=== PATIENT | female | born 1960 | race Caucasian/White ===

== ENCOUNTER 2016-10-06 08:00 | Outpatient (CLI) | payer OTHER | END 2016-10-06 08:01 | disposition home or self-care (01) | DX: R51 Headache (principal) ==

== ENCOUNTER 2016-12-12 13:33 | Outpatient (CLI) | payer OTHER | END 2016-12-12 13:34 | disposition home or self-care (01) | DX: Z00.00 Encounter for general adult medical examination without abnormal findings (principal) ==

== ENCOUNTER 2017-01-20 10:50 | Outpatient (CLI) | payer OTHER ==
--- NOTE | 2017-01-25 14:49 | Mammography Report ---
DIGITAL BILATERAL SCREENING MAMMOGRAM: 01/20/2017 CLINICAL HISTORY: This is a 56-year-old female in for routine screening mammogram. Patient has a fa elina history of breast cancer. Her sister had breast cancer at age 49. Patient had breast biopsy and also has had breast reduction surgery. COMPARISON: 07/18/2008, 07/20/2009, 08/03/2009, 08/02/2010, 10/28/2011, 12/26/2012, 10/24/2013, 10/2014, 12/30/2015. FINDINGS: Breasts are almost entirely composed of fat. Two small benign intramammary lymph nodes are once again noted in the tail of the left breast. No si gnificant clusters of calcification are seen. There is a cluster of 2-3 small masses now noted in th e 5-6 o'clock position of the left breast, 3-4 cm inferior to the left nipple. These findings were n ot evident on 12/30/1999. They measure between 0.2 cm and 0.4 cm in diameter. Recommend patient ret urn for left breast ultrasound for further evaluation. IMPRESSION: A CLUSTER OF 2-3 SMALL MASSES MEASURING BETWEEN 0.2 CM AND 0.4 CM IS NOTED IN THE 5-6 O' CLOCK POSITION OF THE LEFT BREAST. RECOMMEND PATIENT RETURN FOR LEFT BREAST ULTRASOUND FOR FURTHER E VALUATION. STANDARD QUALIFYING STATEMENTS 1. This examination was reviewed with the aid of Computed-Aided Detection (CAD). 2. A negative or benign imaging report should not delay biopsy if clinically suspicious findings are present. Consider surgical consultation if warranted. More than 5% of cancers are not identified b y imaging. 3. Dense breasts may obscure an underlying neoplasm. ADDENDUM: BIRADS CATEGORY: 0, INCOMPLETE. NEEDS ADDITIONAL IMAGING EVALUATION. JOB #: [id number] EXT JOB #:[id number]
== END 2017-01-20 10:51 | disposition home or self-care (01) ==
LOC: DI.N 10:50
PROVIDERS: ATTEND Physician Assistant Medical
DX: Z12.31 Encounter for screening mammogram for malignant neoplasm of breast (principal)
CPT/HCPCS: 77067

== ENCOUNTER 2017-02-09 11:51 | Outpatient (CLI) | payer OTHER ==
--- NOTE | 2017-02-09 13:05 | Ultrasound Report ---
LEFT BREAST ULTRASOUND: 02/09/2017 CLINICAL INDICATION: Nodularity left inferior breast on screening mammogram. TECHNIQUE: Real-time scanning was performed with off premise service representative static images obtained. FINDINGS: Ultrasound of the left inferior breast was performed. At the 5:30 position, 4 cm from the nipple, there is a cluster of small cysts, accounting for the lelia mographic abnormality, with the largest cyst measuring 4 mm. No solid lesion is seen. No sonographica lly suspicious findings are appreciated. IMPRESSION: BENIGN FINDINGS, WITH A CLUSTER OF CYSTS ACCOUNTING FOR THE MAMMOGRAPHIC ABNORMALITY. RECOMMENDATION: ROUTINE ANNUAL SCREENING UNLESS OTHERWISE CLINICALLY INDICATED. BIRADS CATEGORY 2-BENIGN FINDINGS. JOB #: [id number] EXT JOB #:[id number]
== END 2017-02-09 11:52 | disposition home or self-care (01) ==
LOC: DI 11:51
PROVIDERS: ATTEND Physician Assistant Medical
DX: N60.12 Diffuse cystic mastopathy of left breast (principal)
CPT/HCPCS: 76642

== ENCOUNTER 2017-03-29 11:08 | Outpatient (CLI) | payer OTHER ==
--- NOTE | 2017-03-29 12:22 | Ultrasound Report ---
COMPLETE ABDOMINAL ULTRASOUND: 03/29/2017 CLINICAL INDICATION: Reflux. TECHNIQUE: Real-time scanning was performed with medical office representative static images obtained. FINDINGS: The liver measures 10.5 cm. Hepatic echotexture is normal. No intrahepatic biliary dilat ation or focal parenchymal lesion is seen. The common bile duct measures 5 mm. The gallbladder is n ormal, as is the pancreas. The kidneys are normal, with the right measuring 11.3 cm and the left cat suring 10.8 cm. The spleen is normal, measuring 7.9 cm. The abdominal aorta is normal in caliber. The inferior vena cava is unremarkable. No free fluid is present. IMPRESSION: NORMAL ABDOMINAL ULTRASOUND. JOB #: [id number] EXT JOB #:[id number]
== END 2017-03-29 11:09 | disposition home or self-care (01) ==
LOC: DI 11:08
PROVIDERS: ATTEND Physician Assistant Medical
DX: K21.9 Gastro-esophageal reflux disease without esophagitis (principal)
CPT/HCPCS: 76700

== ENCOUNTER 2018-01-01 08:00 | Outpatient (CLI) | payer OTHER ==
[2018-01-01 13:22] LABS: BASOPHILS % (AUTO) 1.2 %; EOSINOPHILS # (AUTO) 0.1 10^3/uL (0.0-0.7); EOSINOPHILS % (AUTO) 2.4 %; HGB - HEMOGLOBIN 14.3 g/dL (12.0-16.0); LYMPHOCYTES # (AUTO) 1.6 10^3/uL (1.5-3.5); LYMPHOCYTES % (AUTO) 41.8 %; MEAN CORPUSCULAR HEMOGLOBIN 31.2 pg (27.0-31.0); MEAN CORPUSCULAR HGB CONC 33.7 g/dL (32.0-36.0); MEAN CORPUSCULAR VOLUME 92.6 fL (81.0-99.0); MEAN PLATELET VOLUME 8.1 fL (7.9-10.8); MONOCYTES # (AUTO) 0.3 10^3/uL (0.0-1.0); MONOCYTES % (AUTO) 7.2 %; NEUTROPHILS # (AUTO) 1.8 10^3/uL (1.5-6.6); NEUTROPHILS % (AUTO) 47.4 %; PLT - PLATELET COUNT 227 10^3/uL (130-450); RED BLOOD COUNT 4.58 10^6/uL (4.20-5.40); RED CELL DISTRIBUTION WIDTH 12.5 % (12.0-15.0); WHITE BLOOD COUNT 3.8 x10^3/uL (4.8-10.8)
[2018-01-01 13:40] LABS: ALBUMIN 4.4 g/dL (3.2-5.5); ALBUMIN/GLOBULIN RATIO 1.8 (1.0-2.2); ALKALINE PHOSPHATASE 43 IU/L (42-121); ALT ALANINE AMINOTRANSFERASE 17 IU/L (10-60); AST ASPARTATE AMINOTRANSFERASE 23 IU/L (10-42); BILIRUBIN,TOTAL 0.3 mg/dL (0.2-1.0); BUN - BLOOD UREA NITROGEN 17 mg/dL (6-20); CALCIUM 8.9 mg/dL (8.5-10.3); CARBON DIOXIDE - CO2 28 mmol/L (21-32); CHLORIDE 106 mmol/L (101-111); CHOL/HDL RATIO 2.9 (<4.4); CHOLESTEROL 167 mg/dL; CREATININE 0.7 mg/dL (0.4-1.0); GFR - MDRD 87 (>89); GLUCOSE 92 mg/dL (70-100); HDL CHOLESTEROL 58 mg/dL; LDL CHOLESTEROL,CALCULATED 94 mg/dL; LDL/HDL RATIO 1.6 (<4.4); SODIUM 141 mmol/L (135-145); TOTAL PROTEIN 6.8 g/dL (6.7-8.2); VLDL CHOLESTEROL 15 mg/dL
[2018-01-01 14:01] LABS: HB2 TOTAL 15.8 g/dL; HEMOGLOBIN A1C 0.57 g/dL; HEMOGLOBIN A1C % 5.5 % (4.6-6.2)
== END 2018-01-01 08:01 | disposition home or self-care (01) ==
LOC: LAB.WCP 08:00
PROVIDERS: ATTEND Family Medicine
DX: E03.9 Hypothyroidism, unspecified (principal); Z00.00 Encounter for general adult medical examination without abnormal findings; R73.01 Impaired fasting glucose; E78.5 Hyperlipidemia, unspecified; M79.7 Fibromyalgia
CPT/HCPCS: 36415; 80053; 80061; 83036; 83721; 84443; 85025

== ENCOUNTER 2018-02-16 08:38 | Outpatient (CLI) | payer OTHER ==
--- NOTE | 2018-02-19 18:24 | Mammography Report ---
Procedure Date: 02/16/2018 Accession Number: [id number] / [id number] Procedure: MGN - Screening Mammo Dig Bilat CPT Code: FULL RESULT: EXAM: Screening Mammo Dig Bilat DATE: 02/16/2018 8:56 AM CLINICAL HISTORY: Sister with breast cancer. History of bilateral reduction surgery. TECHNIQUE: Bilateral CC and MLO views were obtained. COMPARISON: 01/20/2017, 12/30/2015, 11/03/14, 10/24/2013, 12/26/2012 and 10/28/2011 FINDINGS: There are scattered fibroglandular densities. No significant interval change. No suspicious masses, clustered microcalcifications, or regions of architectural distortion are identified. IMPRESSION: Negative. RECOMMENDATION: Routine annual screening unless otherwise clinically indicated. BIRADS CATEGORY 1: Negative STANDARD QUALIFYING STATEMENTS: 1. This examination was reviewed with the aid of Computer-Aided Detection (CAD). 2. A negative or benign imaging report should not delay biopsy if clinically suspicious findings are present. Consider surgical consultation if warrented. More than 5% of cancers are not identified by imaging. 3. Dense breasts may obscure an underlying neoplasm.
== END 2018-02-16 08:39 | disposition home or self-care (01) ==
LOC: DI.N 08:38
PROVIDERS: ATTEND Physician Assistant Medical
DX: Z12.31 Encounter for screening mammogram for malignant neoplasm of breast (principal); Z80.3 Family history of malignant neoplasm of breast
CPT/HCPCS: 77067

== ENCOUNTER 2018-04-21 08:25 | Outpatient (CLI) | payer OTHER ==
--- NOTE | 2018-04-22 11:54 | MRI Report ---
Procedure Date: 04/21/2018 Accession Number: [id number] / [id number] Procedure: MRI - Knee LT W/O CPT Code: FULL RESULT: EXAM: LEFT KNEE MRI WITHOUT CONTRAST EXAM DATE: 04/21/2018 09:21 AM. CLINICAL HISTORY: KNEE PAIN, LEFT. COMPARISON: 12/19/2016 left knee radiographs. TECHNIQUE: Multiplanar, multisequence T1-weighted and fluid-sensitive sequences of the knee without contrast. Other: None. FINDINGS: Bones: There is focal edema within the medial margin of the patella. Marrow signal is otherwise normal with the knee.. Articular Cartilage: Unremarkable. Medial Meniscus: The medial meniscus is intact. Lateral Meniscus: The lateral meniscus is intact. Cruciate Ligaments: The anterior and posterior cruciate ligaments are intact. Collateral Ligaments: The medial collateral and lateral collateral ligamentous structures are intact. Tendons: The quadriceps, patellar, semimembranosus, and popliteus tendons are unremarkable. Musculature: No edema or fatty atrophy. Other: No effusion. No popliteal cyst. No loose bodies. The medial and lateral retinacula are intact. There is edema within the superolateral aspect of Hoffa's fat pad.. IMPRESSION: 1. Edema within the superolateral aspect of Hoffa's fat pad is suggestive of fat pad impingement in the setting of patellar tendon-lateral femoral condyle friction syndrome. 2. Normal cruciate and collateral ligaments. Normal menisci. 3. Intact articular cartilage at the knee. 4. Nonspecific marrow edema at the medial margin of the patella without evidence of underlying fracture. RADIA MUSCULOSKELETAL RADIOLOGY SECTION
== END 2018-04-21 08:26 | disposition home or self-care (01) ==
LOC: DI 08:25
PROVIDERS: ATTEND Physician Assistant Medical
DX: M25.562 Pain in left knee (principal); M25.862 Other specified joint disorders, left knee

== ENCOUNTER 2018-12-21 08:00 | Outpatient (CLI) | payer OTHER ==
[2018-12-21 13:42] LABS: BASOPHILS % (AUTO) 1.1 %; EOSINOPHILS # (AUTO) 0.1 10^3/uL (0.0-0.7); EOSINOPHILS % (AUTO) 1.6 %; HGB - HEMOGLOBIN 14.1 g/dL (12.0-16.0); LYMPHOCYTES # (AUTO) 1.4 10^3/uL (1.5-3.5); LYMPHOCYTES % (AUTO) 33.5 %; MEAN CORPUSCULAR HEMOGLOBIN 30.7 pg (27.0-31.0); MEAN CORPUSCULAR HGB CONC 33.1 g/dL (32.0-36.0); MEAN CORPUSCULAR VOLUME 92.7 fL (81.0-99.0); MEAN PLATELET VOLUME 8.3 fL (7.9-10.8); MONOCYTES # (AUTO) 0.3 10^3/uL (0.0-1.0); MONOCYTES % (AUTO) 6.6 %; NEUTROPHILS # (AUTO) 2.3 10^3/uL (1.5-6.6); NEUTROPHILS % (AUTO) 57.2 %; PLT - PLATELET COUNT 234 10^3/uL (130-450); RED CELL DISTRIBUTION WIDTH 12.8 % (12.0-15.0); WHITE BLOOD COUNT 4.1 x10^3/uL (4.8-10.8)
[2018-12-21 14:02] LABS: ALBUMIN 4.5 g/dL (3.2-5.5); ALBUMIN/GLOBULIN RATIO 1.9 (1.0-2.2); ALKALINE PHOSPHATASE 46 IU/L (42-121); ALT ALANINE AMINOTRANSFERASE < 10 IU/L (10-60); AST ASPARTATE AMINOTRANSFERASE 15 IU/L (10-42); BILIRUBIN,TOTAL 0.9 mg/dL (0.2-1.0); BUN - BLOOD UREA NITROGEN 17 mg/dL (6-20); CALCIUM 9.2 mg/dL (8.5-10.3); CARBON DIOXIDE - CO2 29 mmol/L (21-32); CHLORIDE 103 mmol/L (101-111); CHOL/HDL RATIO 2.7 (<4.4); CHOLESTEROL 172 mg/dL; CREATININE 0.6 mg/dL (0.4-1.0); GFR - MDRD 103 (>89); GLUCOSE 90 mg/dL (70-100); HDL CHOLESTEROL 64 mg/dL; LDL CHOLESTEROL,CALCULATED 91 mg/dL; LDL/HDL RATIO 1.4 (<4.4); SODIUM 139 mmol/L (135-145); TOTAL PROTEIN 6.9 g/dL (6.7-8.2); VLDL CHOLESTEROL 17 mg/dL
== END 2018-12-21 23:59 | disposition home or self-care (01) ==
LOC: EEVIPCON → LAB.WCP 08:00
PROVIDERS: ATTEND Physician Assistant Medical
DX: R73.01 Impaired fasting glucose (principal); Z79.899 Other long term (current) drug therapy; E78.5 Hyperlipidemia, unspecified; E03.9 Hypothyroidism, unspecified
CPT/HCPCS: 36415; 80053; 80061; 83721; 84443; 85025

== ENCOUNTER 2019-03-04 08:04 | Outpatient (CLI) | payer OTHER ==
--- NOTE | 2019-03-04 11:06 | Mammography Report ---
Reason: SCREENING MAMMO Procedure Date: 03/04/2019 Accession Number: [id number] / [id number] Procedure: MARYANNE - Screening Mammo w/Kaveh CPT Code: FULL RESULT: EXAM: Screening Mammo w/Kaveh DATE: 03/04/2019 8:59 AM CLINICAL HISTORY: Routine screening. Sisters with breast cancer TECHNIQUE: (B) - Bilateral CC and MLO views were obtained. COMPARISON: 02/16/2018, 01/20/2017, 12/30/2015 and 11/03/2014 PARENCHYMAL PATTERN: (A) - The breasts demonstrate scattered fibroglandular densities bilaterally. FINDINGS: No significant interval change. There are no suspicious masses, calcifications, or areas of distortion. IMPRESSION: Negative examination. BI-RADS category 1. RECOMMENDATION: (ANNUAL) - Recommend routine annual screening mammography. BI-RADS CATEGORY: (1) - Negative. STANDARD QUALIFYING STATEMENTS: 1. This examination was not reviewed with the aid of Computer-Aided Detection (CAD). 2. A negative or benign imaging report should not preclude biopsy if clinically suspicious findings are present. 3. Dense breasts may obscure an underlying neoplasm. 4. This examination was reviewed with the aid of 3D breast imaging (tomosynthesis).
== END 2019-03-04 08:05 | disposition home or self-care (01) ==
LOC: DI 08:04
DX: Z12.31 Encounter for screening mammogram for malignant neoplasm of breast (principal); Z80.3 Family history of malignant neoplasm of breast
CPT/HCPCS: 77063; 77067

== ENCOUNTER 2019-12-18 08:21 | Outpatient (CLI) | payer OTHER ==
[2019-12-18 12:30] LABS: ALBUMIN 4.6 g/dL (3.2-5.5); ALBUMIN/GLOBULIN RATIO 1.8 (1.0-2.2); ALKALINE PHOSPHATASE 41 IU/L (42-121); ALT ALANINE AMINOTRANSFERASE 14 IU/L (10-60); AST ASPARTATE AMINOTRANSFERASE 19 IU/L (10-42); BILIRUBIN,TOTAL 0.9 mg/dL (0.2-1.0); BUN - BLOOD UREA NITROGEN 14 mg/dL (6-20); CALCIUM 9.4 mg/dL (8.5-10.3); CARBON DIOXIDE - CO2 27 mmol/L (21-32); CHLORIDE 105 mmol/L (101-111); CHOL/HDL RATIO 2.6 (<4.4); CHOLESTEROL 179 mg/dL; CREATININE 0.8 mg/dL (0.4-1.0); GLUCOSE 90 mg/dL (70-100); HDL CHOLESTEROL 70 mg/dL; LDL CHOLESTEROL,CALCULATED 80 mg/dL; LDL/HDL RATIO 1.1 (<4.4); SODIUM 141 mmol/L (135-145); TOTAL PROTEIN 7.2 g/dL (6.7-8.2); VLDL CHOLESTEROL 29 mg/dL
== END 2019-12-18 23:59 | disposition home or self-care (01) ==
LOC: LAB.WCP 08:21
PROVIDERS: ATTEND Physician Assistant Medical
DX: R73.01 Impaired fasting glucose (principal); E78.5 Hyperlipidemia, unspecified; E03.9 Hypothyroidism, unspecified
CPT/HCPCS: 36415; 80053; 80061; 83721; 84443

== ENCOUNTER 2020-03-19 09:40 | Outpatient (CLI) | payer OTHER | END 2020-03-19 23:59 | disposition home or self-care (01) | LOC: COV 09:40 | PROVIDERS: ATTEND Family Medicine | DX: R50.9 Fever, unspecified (principal); R05 Cough; R53.83 Other fatigue; J02.9 Acute pharyngitis, unspecified; Z20.828 Contact with and (suspected) exposure to other viral communicable diseases ==

== ENCOUNTER 2020-05-14 16:10 | Outpatient (CLI) | payer OTHER ==
--- NOTE | 2020-05-15 12:19 | MRI Report ---
PROCEDURE: Hand LT W/O INDICATIONS: SPRAIN OF LT FINGER TECHNIQUE: Noncontrast coronal T1 spin echo and T2 fast spin echo with fat saturation, axial proton density fast spin echo and T2 fast spin echo with fat saturation, sagittal T1 spin echo and STIR through the hand and fingers. COMPARISON: None FINDINGS: Image quality: Excellent. Bones: Surface skin marker is placed over dorsal aspect of fifth proximal phalangeal base. The bones are normally aligned. Marrow edema involving fifth proximal phalangeal base is seen, with subtle int ernal linear hypointense signal concerning for contusion versus a subtle nondisplaced/incomplete frac ture in this area. No other area of abnormal marrow signal is noted. Interphalangeal joint(s): The accessory and proper collateral ligaments appear intact. The volar pl ate demonstrates normal morphology. The extensor central slips appear intact on sagittal images. Metacarpophalangeal joint(s): The accessory and proper collateral ligaments appear intact, as well a s the volar plate and adjacent deep transverse metacarpal ligaments. The sagittal bands of the exten sor galan appear normal. Extensor apparatus: The central slips insert normally on the middle phalangeal base. The conjoint a nd terminal tendons insert normally on the distal phalangeal bases. More proximal portions of the ex tensor tendons also appear normal. Flexor apparatus: The flexor digitorum superficialis and profundus tendons both appear intact. All annular and cruciform pulleys appear intact, without adjacent soft tissue edema. Soft tissues: Visualized muscles demonstrate normal bulk and internal signal. No intramuscular mass es identified. No ganglion cysts. IMPRESSION: 1. Finding is concerning for contusion versus subtle nondisplaced/incomplete fracture involving fifth proximal phalangeal base. No other fracture or dislocation. Fifth digit is normally aligned. 2. No gross tendon or ligament pathology is seen in the fifth digit. Reviewed by: Jossue Cosme MD on 05/15/2020 12:17 PM PDT Approved by: Jossue Cosme MD on 05/15/2020 12:17 PM PDT Station ID: [id number]
== END 2020-05-14 16:11 | disposition home or self-care (01) ==
LOC: DI 16:10
PROVIDERS: ATTEND Family Medicine
DX: R93.6 Abnormal findings on diagnostic imaging of limbs (principal)

== ENCOUNTER 2020-11-27 08:00 | Outpatient (CLI) | payer OTHER ==
[2020-11-27 17:49] LABS: BASOPHILS % (AUTO) 1.1 %; EOSINOPHILS # (AUTO) 0.1 10^3/uL (0.0-0.7); EOSINOPHILS % (AUTO) 2.4 %; HCT - HEMATOCRIT 44.5 % (37.0-47.0); HGB - HEMOGLOBIN 14.4 g/dL (12.0-16.0); LYMPHOCYTES # (AUTO) 1.2 10^3/uL (1.5-3.5); LYMPHOCYTES % (AUTO) 33.2 %; MEAN CORPUSCULAR HEMOGLOBIN 31.9 pg (27.0-31.0); MEAN CORPUSCULAR HGB CONC 32.4 g/dL (32.0-36.0); MEAN CORPUSCULAR VOLUME 98.7 fL (81.0-99.0); MEAN PLATELET VOLUME 10.8 fL (7.9-10.8); MONOCYTES # (AUTO) 0.4 10^3/uL (0.0-1.0); MONOCYTES % (AUTO) 9.5 %; NEUTROPHILS % (AUTO) 53.8 %; PLT - PLATELET COUNT 242 10^3/uL (130-450); RED BLOOD COUNT 4.51 10^6/uL (4.20-5.40); RED CELL DISTRIBUTION WIDTH 12.3 % (12.0-15.0); WHITE BLOOD COUNT 3.7 x10^3/uL (4.8-10.8)
[2020-11-27 18:22] LABS: ALBUMIN 4.3 g/dL (3.2-5.5); ALBUMIN/GLOBULIN RATIO 1.7 (1.0-2.2); ALKALINE PHOSPHATASE 43 IU/L (42-121); ALT ALANINE AMINOTRANSFERASE 16 IU/L (10-60); AST ASPARTATE AMINOTRANSFERASE 23 IU/L (10-42); BILIRUBIN,TOTAL 0.6 mg/dL (0.2-1.0); BUN - BLOOD UREA NITROGEN 21 mg/dL (6-20); CALCIUM 9.4 mg/dL (8.5-10.3); CARBON DIOXIDE - CO2 28 mmol/L (21-32); CHLORIDE 105 mmol/L (101-111); CHOL/HDL RATIO 2.6 (<4.4); CHOLESTEROL 195 mg/dL; CREATININE 0.8 mg/dL (0.4-1.0); GFR - MDRD 74 (>89); GLUCOSE 111 mg/dL (70-100); HDL CHOLESTEROL 74 mg/dL; LDL CHOLESTEROL,CALCULATED 95 mg/dL; LDL/HDL RATIO 1.3 (<4.4); POTASSIUM 4.2 mmol/L (3.5-5.0); SODIUM 141 mmol/L (135-145); TOTAL PROTEIN 6.9 g/dL (6.7-8.2); TRIGLYCERIDES 132 mg/dL; VLDL CHOLESTEROL 26 mg/dL
[2020-11-27 18:32] LABS: THYROID STIMULATING HORMONE 0.26 uIU/mL (0.34-5.60)
[2020-11-27 19:13] LABS: FREE T4 (FREE THYROXINE) 1.17 ng/dL (0.58-1.64)
== END 2020-11-27 23:59 | disposition home or self-care (01) ==
LOC: LAB.WCP 08:00
PROVIDERS: ATTEND Physician Assistant Medical
DX: Z00.00 Encounter for general adult medical examination without abnormal findings (principal); E03.9 Hypothyroidism, unspecified; K21.9 Gastro-esophageal reflux disease without esophagitis; M79.7 Fibromyalgia; E78.5 Hyperlipidemia, unspecified
CPT/HCPCS: 36415; 80053; 80061; 83721; 84439; 84443; 85025

== ENCOUNTER 2021-04-12 08:00 | Outpatient (CLI) | payer OTHER ==
[2021-04-12 12:45] LABS: CALCIUM 9.6 mg/dL (8.5-10.3); CREATININE 0.6 mg/dL (0.4-1.0); POTASSIUM 4.5 mmol/L (3.5-5.0)
[2021-04-12 13:10] LABS: ESTIMATED AVERAGE GLUCOSE 111 mg/dL (70-100); HEMOGLOBIN A1c% 5.5 % (4.27-6.07)
== END 2021-04-12 23:59 | disposition home or self-care (01) ==
LOC: LAB.WCP 08:00
PROVIDERS: ATTEND Physician Assistant Medical
DX: R73.9 Hyperglycemia, unspecified (principal)
CPT/HCPCS: 36415; 80048; 83036

== ENCOUNTER 2021-05-13 13:00 | Outpatient (CLI) | payer OTHER ==
--- NOTE | 2021-05-13 17:53 | XRAY Report ---
PROCEDURE: Knee 4 View BILAT INDICATIONS: BILATERAL KNEE PX TECHNIQUE: 4 views of the knee(s) were acquired. COMPARISON: None. FINDINGS: Bones: No fractures or dislocations. No suspicious bony lesions. Mild tricompartmental knee joint degeneration bilaterally. Soft tissues: No joint effusion. No suspicious soft tissue calcifications. IMPRESSION: Mild osteoarthritic changes bilaterally. Reviewed by: Zack Peres MD on 05/13/2021 5:52 PM PDT Approved by: Zack Peres MD on 05/13/2021 5:52 PM PDT Station ID: [id number]
== END 2021-05-13 23:59 | disposition home or self-care (01) ==
LOC: DI.N 13:00
PROVIDERS: ATTEND Physician Assistant
DX: M17.0 Bilateral primary osteoarthritis of knee (principal)

== ENCOUNTER 2021-05-20 08:47 | Outpatient (CLI) | payer OTHER ==
--- NOTE | 2021-05-24 09:35 | Mammography Report ---
BILATERAL DIGITAL SCREENING MAMMOGRAM 3D/2D: 05/20/2021 CLINICAL: Family history of breast cancer. Routine screening. Comparison is made to exams dated: 04/10/2020 mammogram, 03/04/2019 mammogram, 02/16/2018 mammogram, 2016 ultrasound, 01/20/2017 mammogram, and 12/30/2015 mammogram - [facility]. There are scattered fibroglandular elements in both breasts. No significant masses, calcifications, or other findings are seen in either breast. There has been no significant interval change. IMPRESSION: NEGATIVE There is no mammographic evidence of malignancy. A 1 year screening mammogram is recommended. This exam was interpreted at Station ID: [id number]. NOTE: For mammograms, a report in lay terms will be sent to the patient. Approximately 15% of breast malignancies will not be visualized mammographically. In the management of a palpable breast mass, a negative mammogram must not discourage biopsy of a clinically suspicious lesion. Electronically Signed By: Bradley Flynn M.D. ddp/penrad:05/20/2021 10:01:56 ACR BI-RADS Category 1: Negative 3341F PARENCHYMAL PATTERN: (A) - The breast(s) demonstrate(s) scattered fibroglandular densities. BI-RADS CATEGORY: (1) - 1 RECOMMENDATION: (ANNUAL) - Recommend routine annual screening mammography. [id number] 1 year screening LATERALITY: (B)
== END 2021-05-20 08:48 | disposition home or self-care (01) ==
LOC: DI.N 08:47
DX: Z12.31 Encounter for screening mammogram for malignant neoplasm of breast (principal); Z80.3 Family history of malignant neoplasm of breast

== ENCOUNTER 2021-12-03 07:50 | Outpatient (CLI) | payer OTHER ==
[2021-12-03 11:54] LABS: BASOPHILS # (AUTO) 0.1 10^3/uL (0.0-0.1); BASOPHILS % (AUTO) 1.3 %; EOSINOPHILS # (AUTO) 0.1 10^3/uL (0.0-0.7); EOSINOPHILS % (AUTO) 2.9 %; HCT - HEMATOCRIT 43.7 % (37.0-47.0); HGB - HEMOGLOBIN 14.3 g/dL (12.0-16.0); LYMPHOCYTES # (AUTO) 1.4 10^3/uL (1.5-3.5); LYMPHOCYTES % (AUTO) 37.5 %; MEAN CORPUSCULAR HEMOGLOBIN 30.6 pg (27.0-31.0); MEAN CORPUSCULAR HGB CONC 32.7 g/dL (32.0-36.0); MEAN CORPUSCULAR VOLUME 93.6 fL (81.0-99.0); MEAN PLATELET VOLUME 10.1 fL (7.9-10.8); MONOCYTES # (AUTO) 0.4 10^3/uL (0.0-1.0); MONOCYTES % (AUTO) 9.3 %; NEUTROPHILS # (AUTO) 1.8 10^3/uL (1.5-6.6); PLT - PLATELET COUNT 271 10^3/uL (130-450); RED BLOOD COUNT 4.67 10^6/uL (4.20-5.40); RED CELL DISTRIBUTION WIDTH 12.2 % (12.0-15.0); WHITE BLOOD COUNT 3.8 x10^3/uL (4.8-10.8)
[2021-12-03 12:41] LABS: THYROID STIMULATING HORMONE 1.63 uIU/mL (0.34-5.60)
[2021-12-03 12:42] LABS: ALBUMIN 4.5 g/dL (3.2-5.5); ALBUMIN/GLOBULIN RATIO 1.6 (1.0-2.2); ALKALINE PHOSPHATASE 44 IU/L (42-121); ALT ALANINE AMINOTRANSFERASE 11 IU/L (10-60); AST ASPARTATE AMINOTRANSFERASE 17 IU/L (10-42); BUN - BLOOD UREA NITROGEN 16 mg/dL (6-20); CALCIUM 9.4 mg/dL (8.5-10.3); CARBON DIOXIDE - CO2 27 mmol/L (21-32); CHLORIDE 101 mmol/L (101-111); CHOL/HDL RATIO 3.2 (<4.4); CHOLESTEROL 223 mg/dL; CREATININE 0.9 mg/dL (0.4-1.0); GFR - MDRD 64 (>89); GLUCOSE 96 mg/dL (70-100); HDL CHOLESTEROL 70 mg/dL; LDL CHOLESTEROL,CALCULATED 127 mg/dL; LDL/HDL RATIO 1.8 (<4.4); POTASSIUM 3.9 mmol/L (3.5-5.0); SODIUM 138 mmol/L (135-145); TOTAL PROTEIN 7.3 g/dL (6.7-8.2); TRIGLYCERIDES 132 mg/dL; VLDL CHOLESTEROL 26 mg/dL
== END 2021-12-03 07:51 | disposition home or self-care (01) ==
LOC: LAB.N 07:50
PROVIDERS: ATTEND Physician Assistant Medical
DX: E03.9 Hypothyroidism, unspecified (principal); K21.9 Gastro-esophageal reflux disease without esophagitis; E78.5 Hyperlipidemia, unspecified
CPT/HCPCS: 36415; 80053; 80061; 83721; 84443; 85025

== ENCOUNTER 2022-02-16 08:07 | Outpatient (CLI) | payer OTHER ==
--- NOTE | 2022-02-16 12:09 | MRI Report ---
PROCEDURE: Knee LT W/O INDICATIONS: DJD BILATERAL KNEES TECHNIQUE: Noncontrast sagittal PD fast spin echo and T2 fast spin echo with fat saturation, sagittal 3-D spoile d GE with fat saturation; coronal T1 spin echo and PD fast spin echo with fat saturation, and axial P D fast spin echo with fat saturation through the knee. COMPARISON: Knee radiographs 05/13/2021. Left knee MRI 04/21/2018. FINDINGS: Image quality: Excellent. Anterior cruciate ligament: Intact. Posterior cruciate ligament: Intact. Medial collateral ligament: Intact. Lateral collateral ligament: Intact. Medial meniscus: Mild intrasubstance signal seen at the junction of the posterior horn and body of t he medial meniscus without extension to articular surface. No discrete meniscal tear. Lateral meniscus: Intact. Medial and lateral tendons: The semimembranosus tendon insertions appear intact. Visualized portion s of the pes anserinus tendons appear normal. The popliteus tendon appears intact. Iliotibial band appears normal. Anterior structures: Patella oliva. The distal quadriceps tendon appears mildly thickened. No patellar subluxation. No femoral trochlear dysplasia or ventral trochlear prominence. Mild edema is seen at t he superolateral aspect of Hoffa's fat pad, which can be seen in setting of patellar tendon-lateral f emoral condyle friction syndrome. Bones: No acute trabecular bone injury or fracture. Medial femorotibial cartilage: Mild generalized cartilage thinning in the weightbearing portion of t he medial compartment.. Lateral femorotibial cartilage: Moderate grade partial thickness, irregularity and cartilage fissuri ng at the central to posterior weightbearing portion of the lateral tibial plateau. Patellofemoral cartilage: Mild surface cartilage irregularity at the medial patellar facet. Soft tissues: There is a physiologic amount of joint fluid. There is a trace medial popliteal cyst. The musculature surrounding the knee is normal in bulk. IMPRESSION: 1.Patella oliva. Mild soft tissue edema at the superolateral aspect of Hoffa's fat pad can be seen in the setting of lateral femoral condyle-patellar tendon friction syndrome. 2.Mild distal quadriceps tendinosis. 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 Mild grade II chondromalacia in the medial and anterior jessica rtments. 4.Intact cruciate and collateral ligaments. No acute trabecular bone injury. No discrete meniscal tea r is seen. Reviewed by: Vimal Lawrence MD on 02/16/2022 12:08 PM PDT Approved by: Vimal Lawrence MD on 02/16/2022 12:08 PM PDT Station ID: [id number]
--- NOTE | 2022-02-16 12:09 | MRI Report ---
PROCEDURE: Knee RT W/O INDICATIONS: DJD BILATERAL KNEES TECHNIQUE: Noncontrast sagittal PD fast spin echo and T2 fast spin echo with fat saturation, sagittal 3-D spoile d GE with fat saturation; coronal T1 spin echo and PD fast spin echo with fat saturation, and axial P D fast spin echo with fat saturation through the knee. COMPARISON: Knee radiographs 05/13/2021. FINDINGS: Image quality: Excellent. Anterior cruciate ligament: Intact. Posterior cruciate ligament: Intact. Medial collateral ligament: Intact. Lateral collateral ligament: Intact. Medial meniscus: Intact. Lateral meniscus: Intact. Medial and lateral tendons: The semimembranosus tendon insertions appear intact. Visualized portion s of the pes anserinus tendons appear normal. The popliteus tendon appears intact. Iliotibial band appears normal. Anterior structures: Patella oliva. The distal quadriceps tendon demonstrate mild tendinosis. No garcia lar subluxation. No femoral trochlear dysplasia or ventral trochlear prominence. Edema is seen at the superolateral aspect of Hoffa's fat pad, which can be seen in setting of lateral femoral condyle and patellar tendon friction syndrome. Bones: No acute trabecular bone injury or fracture. Medial femorotibial cartilage: Mild partial thickness cartilage thinning in the weightbearing portio n of the medial femorotibial compartment. Lateral femorotibial cartilage: Mild surface irregularity is seen in the lateral tibial plateau mo cular cartilage at the central weightbearing portion. Patellofemoral cartilage: No focal cartilage defect. Soft tissues: There is a small joint effusion. There is no medial popliteal cyst. The musculature s urrounding the knee is normal in bulk. IMPRESSION: 1.Patella oliva. Mild edema at the superolateral aspect of Hoffa's fat pad can be seen in setting of l ateral femoral condyle patellar tendon friction syndrome. 2.Mild distal quadriceps tendinosis. 3.Mild grade II chondromalacia in the medial and lateral compartments. 4.No acute trabecular bone injury. The cruciate and collateral ligaments are intact. There is no meni scal tear. 5.Small joint effusion. Reviewed by: Vimal Lawrence MD on 02/16/2022 12:07 PM PDT Approved by: Vimal Lawrence MD on 02/16/2022 12:07 PM PDT Station ID: [id number]
== END 2022-02-16 08:08 | disposition home or self-care (01) ==
LOC: DI 08:07
PROVIDERS: ATTEND Physician Assistant Medical
DX: M94.261 Chondromalacia, right knee (principal); M67.863 Other specified disorders of tendon, right knee; M25.461 Effusion, right knee; M94.262 Chondromalacia, left knee; M67.864 Other specified disorders of tendon, left knee

== ENCOUNTER 2022-08-16 08:15 | Outpatient (CLI) | payer OTHER ==
--- NOTE | 2022-08-17 11:54 | Mammography Report ---
BILATERAL DIGITAL SCREENING MAMMOGRAM 3D/2D: 08/16/2022 CLINICAL: Family history of breast cancer. Routine screening. Comparison is made to exams dated: 05/20/2021 mammogram, 04/10/2020 mammogram, 03/04/2019 mammogram, 02/16 mammogram, 02/09/2017 ultrasound, and 01/20/2017 mammogram - [facility]. There are scattered areas of fibroglandular density in both breasts (category b / 25%-50% glandular t issue). No significant masses, calcifications, or other findings are seen in either breast. There has been no significant interval change. IMPRESSION: NEGATIVE There is no mammographic evidence of malignancy. A 1 year screening mammogram is recommended. This exam was interpreted at Station ID: [id number]. NOTE: For mammograms, a report in lay terms will be sent to the patient. Approximately 15% of breast malignancies will not be visualized mammographically. In the management of a palpable breast mass, a negative mammogram must not discourage biopsy of a clinically suspicious lesion. Electronically Signed By: Chuck watkins/loc:08/16/2022 17:46:31 ACR BI-RADS Category 1: Negative 3341F PARENCHYMAL PATTERN: (A) - The breast(s) demonstrate(s) scattered fibroglandular densities. BI-RADS CATEGORY: (1) - 1 RECOMMENDATION: (ANNUAL) - Recommend routine annual screening mammography. [id number] 1 year screening LATERALITY: (B)
== END 2022-08-16 08:16 | disposition home or self-care (01) ==
LOC: DI.N 08:15
DX: Z12.31 Encounter for screening mammogram for malignant neoplasm of breast (principal); Z80.3 Family history of malignant neoplasm of breast

== ENCOUNTER 2022-10-25 17:34 | Outpatient (CLI) | payer OTHER ==
--- NOTE | 2022-10-26 17:09 | XRAY Report ---
PROCEDURE: TMJ's-Temporal Mandibular Jts INDICATIONS: JAW PAIN TECHNIQUE: 4 view(s) of the TMJ acquired. COMPARISON: None FINDINGS: Bones: No fractures or dislocations. No suspicious bony lesions. Soft tissues: No suspicious soft tissue calcifications. IMPRESSION: No acute [employer]. Normal alignment. Reviewed by: Sabino Flynn on 10/26/2022 5:08 PM [facility] Approved by: Sabino Flynn on 10/26/2022 5:08 PM [facility] Station ID: [id number]
== END 2022-10-25 17:35 | disposition home or self-care (01) ==
LOC: DI 17:34
PROVIDERS: ATTEND Physician Assistant Medical
DX: R68.84 Jaw pain (principal)

== ENCOUNTER 2023-01-06 07:21 | Outpatient (CLI) | payer OTHER ==
[2023-01-06 11:42] LABS: BASOPHILS # (AUTO) 0.1 10^3/uL (0.0-0.1); EOSINOPHILS # (AUTO) 0.1 10^3/uL (0.0-0.7); EOSINOPHILS % (AUTO) 1.6 %; HCT - HEMATOCRIT 46.1 % (37.0-47.0); HGB - HEMOGLOBIN 14.9 g/dL (12.0-16.0); LYMPHOCYTES # (AUTO) 1.6 10^3/uL (1.5-3.5); LYMPHOCYTES % (AUTO) 32.7 %; MEAN CORPUSCULAR HEMOGLOBIN 30.7 pg (27.0-31.0); MEAN CORPUSCULAR HGB CONC 32.3 g/dL (32.0-36.0); MEAN CORPUSCULAR VOLUME 94.9 fL (81.0-99.0); MONOCYTES # (AUTO) 0.4 10^3/uL (0.0-1.0); MONOCYTES % (AUTO) 8.5 %; NEUTROPHILS # (AUTO) 2.8 10^3/uL (1.5-6.6); PLT - PLATELET COUNT 258 10^3/uL (130-450); RED BLOOD COUNT 4.86 10^6/uL (4.20-5.40)
[2023-01-06 12:00] LABS: ALBUMIN 4.5 g/dL (3.2-5.5); ALBUMIN/GLOBULIN RATIO 1.5 (1.0-2.2); ALKALINE PHOSPHATASE 47 IU/L (42-121); ALT ALANINE AMINOTRANSFERASE 15 IU/L (10-60); AST ASPARTATE AMINOTRANSFERASE 19 IU/L (10-42); BILIRUBIN,TOTAL 1.1 mg/dL (0.2-1.0); BUN - BLOOD UREA NITROGEN 19 mg/dL (6-20); CALCIUM 9.5 mg/dL (8.5-10.3); CARBON DIOXIDE - CO2 29 mmol/L (21-32); CHLORIDE 106 mmol/L (101-111); CHOL/HDL RATIO 2.8 (<4.4); CHOLESTEROL 223 mg/dL; CREATININE 0.8 mg/dL (0.4-1.0); GFR - MDRD 73 (>89); GLUCOSE 107 mg/dL (70-100); HDL CHOLESTEROL 81 mg/dL; LDL CHOLESTEROL,CALCULATED 113 mg/dL; LDL/HDL RATIO 1.4 (<4.4); POTASSIUM 4.3 mmol/L (3.5-5.0); SODIUM 142 mmol/L (135-145); TOTAL PROTEIN 7.5 g/dL (6.7-8.2); TRIGLYCERIDES 143 mg/dL; VLDL CHOLESTEROL 29 mg/dL
[2023-01-06 12:13] LABS: THYROID STIMULATING HORMONE 2.24 uIU/mL (0.34-5.60)
== END 2023-01-06 07:22 | disposition home or self-care (01) ==
LOC: LAB.N 07:21
PROVIDERS: ATTEND Physician Assistant Medical
DX: M79.7 Fibromyalgia (principal); R73.9 Hyperglycemia, unspecified; E78.5 Hyperlipidemia, unspecified; E03.9 Hypothyroidism, unspecified; K21.9 Gastro-esophageal reflux disease without esophagitis; I73.00 Raynaud's syndrome without gangrene
CPT/HCPCS: 36415; 80053; 80061; 83721; 84443; 85025

== ENCOUNTER 2023-08-10 08:00 | Outpatient (CLI) | payer OTHER ==
--- NOTE | 2023-08-10 15:33 | XRAY Report ---
PROCEDURE: Elbow 3 View RT INDICATIONS: RIGHT ELBOW PAIN TECHNIQUE: 3 views of the elbow were acquired. COMPARISON: None. FINDINGS: Bones: No fractures or dislocations. No suspicious bony lesions. Soft tissues: No effusion. No suspicious soft tissue calcifications or masses. IMPRESSION: No acute bony abnormality. No significant degenerative changes identified. If there is continued clinical concern for internal soft tissue derangement, consider further evalua tion with MRI. Reviewed by: Chuck Lazo MD on 08/10/2023 3:31 PM PST Approved by: Chuck Lazo MD on 08/10/2023 3:31 PM PST Station ID: [id number]
== END 2023-08-10 23:59 | disposition home or self-care (01) ==
LOC: DI.WOS 08:00
PROVIDERS: ATTEND Orthopaedic Surgery
DX: M77.11 Lateral epicondylitis, right elbow (principal)

== ENCOUNTER 2023-08-21 10:23 | Outpatient (CLI) | payer OTHER ==
--- NOTE | 2023-08-22 08:48 | Mammography Report ---
BILATERAL DIGITAL SCREENING MAMMOGRAM 3D/2D: 08/21/2023 CLINICAL: Routine screening. Family history of breast cancer. Comparison is made to exams dated: 08/16/2022 mammogram, 05/20/2021 mammogram, 04/10/2020 mammogram, 03/04/2019 mammogram, and 02/16/2018 mammogram - [facility]. There are scattered areas of fibroglandular density in both breasts (category b / 25%-50% glandular t issue). No significant masses, calcifications, or other findings are seen in either breast. There has been no significant interval change. IMPRESSION: NEGATIVE There is no mammographic evidence of malignancy. A 1 year screening mammogram is recommended. Based on the Tyrer Cuzick model (a risk assessment model) the patients lifetime risk is 18.5% and he r 10 year risk is 8.7%. According to the ACR, ACS, and NCCN guidelines, an annual breast MRI exam wolf ng with mammogram is recommended if the patients lifetime risk is 20% or greater. This exam was interpreted at Station ID: [id number]. NOTE: For mammograms, a report in lay terms will be sent to the patient. Approximately 15% of breast malignancies will not be visualized mammographically. In the management of a palpable breast mass, a negative mammogram must not discourage biopsy of a clinically suspicious lesion. Electronically Signed By: Laurie Mcdonald M.D., PH.D /loc:08/21/2023 16:05:13 letter sent: No_Letter ACR BI-RADS Category 1: Negative 3341F PARENCHYMAL PATTERN: (A) - The breast(s) demonstrate(s) scattered fibroglandular densities. BI-RADS CATEGORY: (1) - 1 Mammogram [id number] 1 year screening LATERALITY: (B)
== END 2023-08-21 10:24 | disposition home or self-care (01) ==
LOC: DI.N 10:23
DX: Z12.31 Encounter for screening mammogram for malignant neoplasm of breast (principal); Z80.3 Family history of malignant neoplasm of breast; R92.323 Mammographic fibroglandular density, bilateral breasts

== ENCOUNTER 2024-01-02 09:34 | Outpatient (CLI) | payer OTHER ==
--- NOTE | 2024-01-02 16:00 | MRI Report ---
PROCEDURE: Elbow RT WO INDICATIONS: LATERAL EPICONDYLITIS TECHNIQUE: Noncontrast coronal proton density fast spin echo and T2 fast spin echo with fat saturation, axial an d sagittal T1 spin echo and T2 fast spin echo with fat saturation through the elbow. COMPARISON: Right elbow radiograph dated 08/10/2023. FINDINGS: Image quality: Excellent. Lateral structures: The lateral ulnar collateral ligament and radial collateral ligament both appear attenuated with intrasubstance degenerative signal. The overlying common extensor tendon appears th ickened with surrounding edema near its lateral epicondylar insertion. Medial structures: The ulnar collateral ligament appears intact. The overlying common flexor tendon appears normal. The ulnar nerve appears normal in size and signal within the cubital tunnel. Anterior structures: Distal biceps tendon is mildly thickened at its proximal radial insertion. The b rachialis tendon appears intact. No bicipitoradial bursal fluid. The median and radial neurovascular bundles appear normal; no focal muscle atrophy to suggest nerve impingement. Posterior structures: The triceps tendon appears intact. No olecranon bursal fluid. Bone and cartilage: No bone marrow contusions or fractures. No osteochondral injuries. IMPRESSION: 1. Low-grade partial-thickness tear involving lateral collateral ligaments. Tendinosis and low-grade partial-thickness involving overlying common extensor tendon origin and lateral epicondyle. Finding i s consistent with low to moderate grade lateral epicondylitis. 2. Distal biceps tendinosis at its proximal radial insertion. 3. No marrow edema. No fracture or dislocation. No osteochondral injuries. Reviewed by: Jossue Cosme MD on 01/02/2024 3:59 PM PDT Approved by: Jossue Cosme MD on 01/02/2024 3:59 PM PDT Station ID: [id number]
== END 2024-01-02 09:35 | disposition home or self-care (01) ==
LOC: DI 09:34
PROVIDERS: ATTEND Orthopaedic Surgery
DX: S53.441A Ulnar collateral ligament sprain of right elbow, initial encounter (principal); S53.431A Radial collateral ligament sprain of right elbow, initial encounter; M77.11 Lateral epicondylitis, right elbow; M67.921 Unspecified disorder of synovium and tendon, right upper arm

== ENCOUNTER 2024-02-14 08:00 | Outpatient (CLI) | payer OTHER ==
[2024-02-14 18:42] LABS: BILIRUBIN,URINE NEGATIVE (NEGATIVE); GLUCOSE, URINE (UA) NEGATIVE (NEGATIVE); KETONES,URINE (UA) NEGATIVE (NEGATIVE); LEUKOCYTE ESTERASE, URINE NEGATIVE (NEGATIVE); NITRITE,URINE NEGATIVE (NEGATIVE); OCCULT BLOOD,URINE TRACE-INTA (NEGATIVE); PROTEIN,URINE NEGATIVE (NEGATIVE); UROBILINOGEN,URINE 0.2 (NORMAL) E.U./dL (NORMAL)
[2024-02-14 18:54] LABS: BACTERIA,URINE None Seen /HPF (None Seen); CLARITY,URINE CLEAR (CLEAR); RBC,URINE 0-5 /HPF (0-5); SQUAMOUS EPITHELIAL CELL,UR NONE SEEN (<= Few); WBC,URINE 0-3 /HPF (0-5)
== END 2024-02-14 23:59 | disposition home or self-care (01) ==
LOC: LAB.N 08:00
PROVIDERS: ATTEND Nurse Practitioner
DX: R30.0 Dysuria (principal)
CPT/HCPCS: 81001; 87086